=== PATIENT | male | born 1975 | race Caucasian/White ===

== ENCOUNTER → 2020-10-27 | Outpatient (CLI) | payer OTHER ==
[2020-10-27 14:35] LABS: ALT 54 U/L (4-49); AST 28 U/L (17-59); African American GFR (CKD) >90 (>60 ml/min/1.73 sqM); Alkaline Phosphatase 89 U/L (38-126); Anion Gap 10 mmol/L; Blood Urea Nitrogen 18 mg/dL (9-20); Calcium 9.1 mg/dL (8.4-10.2); Carbon Dioxide 22 mmol/L (22-30); Chloride 106 mmol/L (98-107); Glucose 94 mg/dL (74-99); Non-African American GFR(CKD) >90 (>60 ml/min/1.73 sqM); Potassium 4.4 mmol/L (3.5-5.1); Sodium 138 mmol/L (137-145); Total Bilirubin 0.7 mg/dL (0.2-1.3); Total Protein 7.1 g/dL (6.3-8.2)
[2020-10-27 14:40] LABS: Basophils # (A) 0.1 k/uL (0-0.2); Basophils % (A) 1 %; Eosinophils # (A) 0.2 k/uL (0-0.7); Eosinophils % (A) 2 %; HCT 46.7 % (39.0-53.0); HGB 15.4 gm/dL (13.0-17.5); Lymphocytes # (A) 1.6 k/uL (1.0-4.8); Lymphocytes % (A) 18 %; MCH 29.7 pg (25.0-35.0); Mean Platelet Volume 8.3; Monocytes # (A) 0.5 k/uL (0-1.0); Monocytes % (A) 6 %; Neutrophils # (A) 6.2 k/uL (1.3-7.7); Neutrophils % (A) 71 %; Platelet Count 175 k/uL (150-450); RBC 5.19 m/uL (4.30-5.90); WBC 8.7 k/uL (3.8-10.6)
--- NOTE | 2020-10-27 17:40 | ECHOF ---
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 This was a technically good study. The left ventricular size is normal. There is mild concentric left ventricular hypertrophy. Overa ll left ventricular systolic function is normal with, an EF between 60 - 65 %. The right ventricle is normal in size. The left atrial size is normal. The right atrial size is normal. The aortic valve is trileaflet, and appears structurally normal. No aortic stenosis or regurgitation. Mild mitral regurgitation is present. Mild tricuspid regurgitation present. Right ventricular systolic pressure is normal at < 35 mmHg. Trace/mild (physiologic) pulmonic regurgitation. The aortic root size is normal. There is a trivial pericardial effusion present. CONCLUSIONS -------- 1. The left ventricular size is normal. 2. There is mild concentric left ventricular hypertrophy. 3. Overall left ventricular systolic function is normal with, an EF between 60 - 65 %. 4. The right ventricle is normal in size. 5. The left atrial size is normal. 6. The right atrial size is normal. 7. Mild mitral regurgitation is present. 8. Mild tricuspid regurgitation present. 9. Trace/mild (physiologic) pulmonic regurgitation. 10. The aortic root size is normal. 11. There is a trivial pericardial effusion present. RESEARCH RECRUITER: Debbie Cohen RDCS
== END | disposition home or self-care (01) ==
LOC: RADECHMAIN 12:20
PROVIDERS: ATTEND Family Medicine
DX: I08.1 Rheumatic disorders of both mitral and tricuspid valves (principal); I37.1 Nonrheumatic pulmonary valve insufficiency
CPT/HCPCS: 36415; 80053; 85025; 93306

== ENCOUNTER → 2020-12-09 | Outpatient (CLI) | payer OTHER ==
--- NOTE | 2020-12-09 14:04 | CT ---
EXAMINATION TYPE: CT chest w con DATE OF EXAM: 12/09/2020 COMPARISON: None HISTORY: 45-year-old male R95.9, Enlarged lymph node TECHNIQUE: Contiguous axial scanning of the chest after the administration of 100 ml mL of Isovue 300 . Coronal/sagittal reconstructions performed. CT DLP: 431.20mGycm. Automatic exposure control utilized for a dose reduction. FINDINGS: Heart normal size without pericardial effusion. Mildly aneurysmal aortic root at 4.0 cm. Ectatic ascending aorta at 3.7 cm. Conventional arch vessel branching anatomy. AP window lymph node measures 6 cm. No thoracic lymphadenopathy by CT size criteria. Mild patchy groundglass changes with a mid and lower lung predominance. Otherwise, no consolidation o r pleural effusion. No honeycombing or thickening of the bronchovascular bundles. No dominant cystic changes. Tiny hiatal hernia. Nonspecific small 1.4 cm cyst of the spleen. 1.5 cm cortical lesion medial upper pole right kidney. Indeterminate attenuation, suspect a mildly complicated cyst. Six-month follow-up renal ultrasound can reassess. Bones: No osseous destructive process. IMPRESSION: 1. No thoracic lymphadenopathy by CT size criteria. 2. Mild patchy groundglass changes with a mid and lower lung predominance. Correlate to exclude atypi olga pneumonia or hypersensitivity pneumonitis. Interstitial pneumonitis such as NSIP or DIP are also differential considerations. 3. Indeterminate 1.5 cm cortical lesion upper pole right kidney probably represents a mildly complica shabnam cyst. 6 month follow-up renal ultrasound to reassess. 4. The aortic root appears mildly aneurysmal at 4.0 cm.
== END | disposition home or self-care (01) ==
LOC: RADCTMAIN 11:47
PROVIDERS: ATTEND Internal Medicine Critical Care Medicine
DX: R91.8 Other nonspecific abnormal finding of lung field (principal); J84.89 Other specified interstitial pulmonary diseases
CPT/HCPCS: 71260; Q9967

== ENCOUNTER → 2021-06-04 | Outpatient (CLI) | payer BC ==
--- NOTE | 2021-06-04 09:06 | CT ---
EXAMINATION TYPE: CT chest wo con DATE OF EXAM: 06/04/2021 COMPARISON: Chest CT December 09, 2020 HISTORY: Lymphadenopathy; history of COVID. CT DLP: 457.40 mGycm. Automated Exposure Control for Dose Reduction was Utilized. TECHNIQUE: CT scan of the thorax is performed without IV contrast. FINDINGS: LUNGS: Interval resolution of bilateral multifocal groundglass opacities. No new focal consolidation . No suspicious nodules or masses. No pleural effusion or pneumothorax. MEDIASTINUM: Lack of IV contrast is noted to limit evaluation for mediastinal and especially hilar ad enopathy. There are no definitive new greater than 1 cm mediastinal lymph nodes. No cardiomegaly or pericardial effusion is seen. OTHER: Likely stable 1.4 cm low dense lesion in the spleen axial image 48 favoring benign thin-walled cyst. Stable 1.2 cm exophytic low dense lesion upper pole right kidney axial image 55 favoring benig n etiology. IMPRESSION: No new thoracic adenopathy clearly seen. Interval resolution of bilateral multifocal grou ndglass opacities. No residual scarring or new acute pulmonary process.
== END | disposition home or self-care (01) ==
LOC: RADCTMAIN 07:49
PROVIDERS: ATTEND Internal Medicine Critical Care Medicine
DX: R59.9 Enlarged lymph nodes, unspecified (principal); Z86.16 Personal history of COVID-19
CPT/HCPCS: 71250

== ENCOUNTER → 2024-05-28 | Outpatient (CLI) | payer BC ==
[2024-05-28 15:26] VITALS: BP 147/96; PULSE 85; RESP 18; TEMP 98.3
--- NOTE | 2024-05-28 16:35 | P.SLEEP ---
History of Present Illness H&P Date: 05/28/24 48-year-old male patient with previous history of obstructive sleep apnea that has been diagnosed prior to 2019, coming in for evaluation. Noted at that time, the patient underwent a home sleep study and following that he was given a CPAP machine. He tried the CPAP machine for a few days and he was unable to tolerate the treatment and he ended up putting the treatment. He still has the machine and he has not used any treatment regarding his ANTONIO. The based on severity of his disease is not known. Over the past 5 years, the patient has remained stable in terms of his weight. No significant weight gain or weight loss. 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 He works for a [employer]. He drives from [facility] to [place] every day and has not for sleep while driving. Upon arriving home, the patient feels excessively tired and sleepy and fatigued and he does not participate in routine day-to-day activities. His functionality at work however is still preserved. He goes to bed around 10 PM, wakes up 6:30 AM in the morning. He wakes a few times the middle of the night for urination. He has been noted to stop breathing in the middle of the night and this has been reported by his who happens to be a nurse. He wakes up in the morning feeling tired and fatigued. No smoking. No substance abuse. No alcoholism. He is known to have chronic bronchial asthma maintained on Advair and he does not have any nighttime shortness of breath or chest pain. He has been hospitalized back in 2020 for severe COVID-19 related pneumonia and hypoxic respiratory failure from which she recovered. He has no respiratory limitation at this point in time. No restlessness in lower extremities. No anxiety. No depression. No history of any motor vehicle accidents because of pulling sleep. He sleeps on his side. He is a mouth breather. His weight is stable at 230 and his body mass index is at 33.8. His current [place] score is at 6. He is also known to have hypertension. No diabetes mellitus. No atrial fibrillation. No congestive heart failure. No stroke. Review of Systems Constitutional: Reports daytime sleepiness, Reports fatigue Eyes: denies as per HPI, denies blurred vision, denies bulging eye, denies decreased vision, denies diplopia, denies discharge, denies dry eye, denies irritation, denies itching, denies pain, denies photophobia, denies loss of peripheral vision, denies loss of vision, denies tunnel vision/blind spots Ears: deny: decreased hearing, ear discharge, earache, tinnitus Ears, nose, mouth and throat: Reports as per HPI Breasts: absent: as per HPI, gynecomastia Cardiovascular: Reports as per HPI Respiratory: Reports sleep apnea, Reports snoring Gastrointestinal: Reports as per HPI Genitourinary: Reports as per HPI Musculoskeletal: Reports as per HPI Musculoskeletal: absent: ankle pain, ankle stiffness, ankle swelling, as per HPI, elbow pain, elbow stiffness, elbow swelling, foot pain, foot stiffness, foot swelling, hand pain, hand stiffness, hand swelling, hip pain, hip stiffness, hip swelling, knee pain, knee stiffness, knee swelling, shoulder pain, shoulder stiffness, shoulder swelling, wrist pain, wrist stiffness, wrist swelling Integumentary: Reports as per HPI Neurological: Reports as per HPI Psychiatric: Reports hypersomnia, Reports sleep disturbances Endocrine: Reports as per HPI, Reports fatigue Hematologic/Lymphatic: Reports as per HPI Allergic/Immunologic: Reports as per HPI Past Medical History Past Medical History: Asthma, Hypertension, Sleep Apnea/CPAP/BIPAP History of Any Multi-Drug Resistant Organisms: None Reported Additional Past Surgical History / Comment(s): Upper and lower colonoscopy/scope - was throwing up blood in 2013 Past Psychological History: No Psychological Hx Reported Smoking Status: Never smoker Past Alcohol Use History: Occasional Past Drug Use History: Marijuana Additional Drug Use History / Comment(s): marijuana gummies - Past Family History Mother Additional Family Medical History / Comment(s): MS Medications and Allergies Home Medications Medication Instructions Recorded Confirmed Type Fluticasone Propion/Salmeterol 100 mcg NASAL BID 05/28/24 05/28/24 History [Advair 100-50 Diskus] Losartan [Cozaar] 50 mg PO DAILY 05/28/24 05/28/24 History Physical Exam Vitals: Vital Signs Temp Pulse Resp BP Pulse Ox 05/28/24 15:25 98.3 F 85 18 147/96 98 Intake and Output 05/28/24 05/28/24 05/28/24 06:59 14:59 22:59 Other: Weight 108.465 kg The patient appeared well nourished and normally developed. Vital signs as documented. Upper score is at 6, neck size 18 inches. Body mass index is 33.8. Head exam is unremarkable. No scleral icterus or corneal arcus noted. Neck is without jugular venous distension, thyromegaly, or carotid bruits. Carotid upstrokes are brisk bilaterally. The patient has a Mallampati class IV with significant crowding of the posterior pharynx Lungs are clear to auscultation and percussion. Cardiac exam reveals the PMI to be normally sized and situated. Rhythm is regular. First and second heart sounds normal. No murmurs, rubs or gallops. Abdominal exam reveals normal bowel sounds, no masses, no organomegaly and no aortic enlargement. Extremities are nonedematous and both femoral and pedal pulses are normal. Examination of the skin revealed no evidence of significant rashes, suspicious appearing nevi or other concerning lesions. Neurologically, the patient is awake and alert and the patient does not have any focal neurological deficit. Cranial nerves are essentially intact. Assessment and Plan Plan: Obstructive sleep apnea, symptomatic and the patient is coming in for evaluation. He was originally diagnosed back in 2019 and he was unable to maintain treatment due to poor tolerance. He started a CPAP machine at home. Chronic fatigue and sleepiness [place] score is at 6 Body mass index of 33.8 History of COVID-19 pneumonia with secondary prolonged respiratory failure for which the patient has recovered Moderate persistent bronchial asthma Plan The patient needs reevaluation. Going to order a home sleep study to reevaluate the presence and severity of sleep apnea and based on that we will make further decision on treatment options. I inclined on putting this patient on CPAP therapy and I am willing to utilize his CPAP machine as he owns at home to the diagnosis of sleep apnea is confirmed. Encourage weight loss. Maintain good sleep hygiene measures. Avoid driving especially when feeling drowsy or sleepy. Avoid drinking alcohol at least 3 hours prior to going to bed. Will continue to follow. Will meet this patient again to discuss the results of the home sleep study once completed. Sleep Note - Sleep Data ESS Total: 6 - Sleep Note Sleep Note: Temperature: 98.3 F Pulse Rate: 85 Respiratory Rate: 18 Blood Pressure: 147/96 SpO2: 98 Height: 5 ft 10.5 in Weight: 108.465 kg BMI: Neck Circumference: 18
== END ==
LOC: 3 N SLEEP 14:35
PROVIDERS: ATTEND Internal Medicine Critical Care Medicine
DX: G47.33 Obstructive sleep apnea (adult) (pediatric) (principal); G47.10 Hypersomnia, unspecified; R53.82 Chronic fatigue, unspecified; J96.91 Respiratory failure, unspecified with hypoxia; J45.40 Moderate persistent asthma, uncomplicated; Z86.16 Personal history of COVID-19; Z87.01 Personal history of pneumonia (recurrent); Z79.51 Long term (current) use of inhaled steroids
CPT/HCPCS: 99211

== ENCOUNTER → 2024-06-05 | Outpatient (CLI) | payer BC ==
--- NOTE | 2024-06-17 18:44 | P.PCN ---
Date of Procedure: 06/05/24 Operative Findings: Home sleep study Pertinent history 48-year-old male patient with previous history of obstructive sleep apnea that has been diagnosed prior to 2019, coming in for evaluation. Noted at that time, the patient underwent a home sleep study and following that he was given a CPAP machine. He tried the CPAP machine for a few days and he was unable to tolerate the treatment and he ended up putting the treatment. He still has the machine and he has not used any treatment regarding his ANTONIO. The based on severity of his disease is not known. Over the past 5 years, the patient has remained stable in terms of his weight. No significant weight gain or weight loss. 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 He works for a [employer]. He drives from [place] to [place] every day and has not for sleep while driving. Upon arriving home, the patient feels excessively tired and sleepy and fatigued and he does not participate in routine day-to-day activities. His functionality at work however is still preserved. He goes to bed around 10 PM, wakes up 6:30 AM in the morning. He wakes a few times the middle of the night for urination. He has been noted to stop breathing in the middle of the night and this has been reported by his who happens to be a nurse. He wakes up in the morning feeling tired and fatigued. No smoking. No substance abuse. No alcoholism. He is known to have chronic bronchial asthma maintained on Advair and he does not have any nighttime shortness of breath or chest pain. He has been hospitalized back in 2020 for severe COVID-19 related pneumonia and hypoxic respiratory failure from which she recovered. He has no respiratory limitation at this point in time. No restlessness in lower extremities. No anxiety. No depression. No history of any motor vehicle accidents because of pulling sleep. He sleeps on his side. He is a mouth breather. His weight is stable at 230 and his body mass index is at 33.8. His current [place] score is at 6. He is also known to have hypertension. No diabetes mellitus. No atrial fibrillation. No congestive heart failure. No stroke. Physical findings The patient has a body mass index of 33.8. Weight is 239 pounds Technical description The [employer] Ap[employer] system was used to conduct this home sleep study. This is a type III home sleep study evaluation. The total recording duration was 9 hours and 46 minutes. The study started at 9:12 PM and the study ended at 6:58 AM. There was a total of 9 hours and 30 minutes of flow monitoring and 9 hours and 30 minutes of oxygen saturation monitoring and this was an adequate sleep study. Results The respiratory count showed a total of 178 obstructive apneas and 65 obstructive hypopneas. The resulting AHI was 25.6 worsening supine body position with an AHI of 46.2 while being supine. Oxygenation analysis The patient had a total of 134 oxygen desaturations with a pulse ox dropping more than 4%. The baseline pulse ox while awake was 95%. Lowest oxygen saturation was 80%. The patient spent only 6 minutes of the sleep time below pulse ox of 89% Cardiac summary Average heart rate was 60 minimum heart rate of 44 and a maximum heart rate of 215 Assessment Obstructive sleep apnea, moderate in severity with an AHI of 25.6, worse in the supine body position with an AHI of 46.2 while being supine. This patient has been diagnosed having obstructive sleep apnea back in 2019. He was unable to tolerate CPAP therapy. He still has a CPAP machine at home which she has not utilized. He claims that his machine is functional. Chronic fatigue and sleepiness, [place] score is at 6 [place] score is at 6 Body mass index of 33.8 History of COVID-19 pneumonia with secondary prolonged respiratory failure for which the patient has recovered Moderate persistent bronchial asthma Plan The patient will need a in-lab CPAP titration Encourage sleeping on the side Following his titration, I am going to utilize his old machine that was delivered to him and a previous sleep evaluation I am going to make the necessary pressure adjustments and mask interface adjustments to make the treatment more successful. Noted he has failed CPAP therapy in the past. Encourage weight loss. Maintain good sleep hygiene measures. Avoid driving especially when feeling drowsy or sleepy. Avoid drinking alcohol at least 3 hours prior to going to bed. Will continue to follow.
== END ==
LOC: 3 N SLEEP 16:48
PROVIDERS: ATTEND Internal Medicine Critical Care Medicine
DX: G47.33 Obstructive sleep apnea (adult) (pediatric) (principal); J45.40 Moderate persistent asthma, uncomplicated; Z68.33 Body mass index [BMI] 33.0-33.9, adult; Z86.16 Personal history of COVID-19